=== PATIENT | female | born 1970 | race Caucasian/White ===

== ENCOUNTER 2019-08-09 07:57 | Day surgery (SDC) | payer OTHER ==
[2019-08-05 16:15] LABS: EOSINOPHILS # (AUTO) 0.2 X10'3 (0-0.9); LYMPHOCYTES # (AUTO) 2.6 X10'3 (1.1-4.8); MONOCYTES # (AUTO) 0.5 X10'3 (0-0.9); PRE OP PLATELET COUNT 215 X10'3 (140-440)
[2019-08-05 16:18] LABS: BASOPHILS % (AUTO) 0.7 % (0-1); EOSINOPHILS % (AUTO) 3.3 % (0-6); LYMPHOCYTES % (AUTO) 39.3 % (21-51); MEAN CORPUSCULAR HEMOGLOBIN 31.1 PG (27.0-31.0); MEAN CORPUSCULAR HGB CONC 34.3 g/dL (33.0-36.5); MEAN CORPUSCULAR VOLUME 90.7 FL (78-98); MEAN PLATELET VOLUME 9.1 FL (7.4-10.4); MONOCYTES % (AUTO) 6.9 % (2-12); NEUTROPHILS # (AUTO) 3.3 X10'3 (1.8-7.7); NEUTROPHILS % (AUTO) 49.8 % (42-75); PRE OP HEMATOCRIT 41.6 % (35.0-45.0); PRE OP HEMOGLOBIN 14.3 g/dL (12.0-16.0); RED BLOOD COUNT 4.59 X10'6 (4.20-5.60); RED CELL DISTRIBUTION WIDTH 13.5 % (11.5-14.5)
[2019-08-05 16:27] LABS: ALBUMIN 3.8 G/DL (3.4-5.0); ALBUMIN/GLOBULIN RATIO 1.2 (1.1-1.5); ALKALINE PHOSPHATASE 67 IU/L (46-116); BLOOD UREA NITROGEN 17 MG/DL (7-18); BUN/CREATININE RATIO 19.8 (6.6-38.0); CALCIUM 8.9 MG/DL (8.5-10.1); CHLORIDE 109 MMOL/L (99-107); CREATININE 0.86 MG/DL (0.40-0.90); PRE OP ALT 22 U/L (30-65); PRE OP ANION GAP 4 (8-16); PRE OP AST 17 U/L (10-37); PRE OP BILIRUB, TOTAL 0.4 MG/DL (0.0-1.0); PRE OP GLUCOSE 88 MG/DL (70-104); PRE OP POTASSIUM 4.3 MMOL/L (3.4-5.1); PRE OP SODIUM 144 MMOL/L (135-145); TOTAL CARBON DIOXIDE 30.7 MMOL/L (24-32); eGFR 70 ML/MIN
[2019-08-09] VITALS (7 sets, daily range): BP systolic 111–138; BP diastolic 64–82
[~2019-08-09] VITALS: Ht 162.6 cm; Wt 90.7 kg
[~2019-08-09 07:57] MED LIST: BUPIVAcaine/PF 2.5mg/ml (0.25%) 10ml vial ONE; LIDOcaine 0.5% (5mg/ml) 50ml vial ONE; PREG75CA75 PO; cefazolin/dext.iso 2gm/50ml 50 ML IV ONE; famotidine 20mg tablet PO ONE; ringers solution, lacted 1,000 ML IV SCH
[2019-08-09] MEDS ORDERED: LIDOcaine 0.5% (5mg/ml) 50ml vial ONE (09:30)
[2019-08-09] MEDS ORDERED: midazolam 2 mg/2 ml injection ONE (09:34)
[2019-08-09] MEDS ORDERED: fentaNYL/PF 50MCG/1 ML 2ML syringe ONE (09:34)
--- NOTE | 2019-08-09 10:35 | NUR ---
Received from OR via BED, accompanied by Anesthesiologist DR STEPHENS and report given by Anesthesiolgist. PATIENT A&OX4, DENIES PAIN, V/S WNL, NEUROVASCULAR CHECKS INTACT, 20G PIV LUE, SCD ON, DRESSING TO RIGHT WRIST CDI ELEVATED WITH ICEBAG APPLIED.
[2019-08-09] MEDS ORDERED: ringers solution, lacted 1,000 ML IV SCH (10:57)
[2019-08-09] MEDS ORDERED: morphine 2 MG/ML inj. syringe IV PRN (11:00)
[2019-08-09] MEDS ORDERED: meperidine/PF 25mg/ml syringe IV PRN ×2 (11:00)
[2019-08-09] MEDS ORDERED: proCHLORperazine 10 MG/2 ml inj IV PRN (11:00)
[2019-08-09] MEDS ORDERED: ondansetron/PF 4mg/2ml inj IV PRN (11:00)
[2019-08-09] MEDS ORDERED: morphine 4 MG/ML inj SYRINge IV PRN (11:00)
[2019-08-09] MEDS: meperidine/PF 25mg/ml syringe IV PRN ×2 (11:03→11:15)
[2019-08-09] MEDS ORDERED: HYDROcodone/acetaminophen 5mg/325mg tablet PO ONE (11:15)
--- NOTE | 2019-08-09 11:35 | NUR ---
PATIENT A&OX4, states pain tolerable, V/S WNL, NEUROVASCULAR CHECKS INTACT, 20G PIV D/C, SCD OFF, DRESSING TO RIGHT WRIST CDI ELEVATED WITH ICEBAG APPLIED. I HAVE REVIEWED D/C INSTRUCTIONS WITH PATIENT AND FAMILY AND THEY HAVE VERBALIZED UNDERSTANDING. PATIENT D/C HOME WITH ALL BELONGINGS AND FAMILY GAVE TRANSPORT HOME. PAIN MEDS ALREADY RECEIVED BY MD OFFICE.
== END 2019-08-09 11:35 | disposition home or self-care (01) ==
LOC: PAS 07:57
PROVIDERS: ATTEND Orthopaedic Surgery Hand Surgery
DX: G56.01 Carpal tunnel syndrome, right upper limb (principal); M19.90 Unspecified osteoarthritis, unspecified site; G62.9 Polyneuropathy, unspecified; E66.9 Obesity, unspecified; Z68.34 Body mass index [BMI] 34.0-34.9, adult; Z98.890 Other specified postprocedural states; Z98.84 Bariatric surgery status; Z90.710 Acquired absence of both cervix and uterus; Z72.89 Other problems related to lifestyle; Z11.59 Encounter for screening for other viral diseases
CPT/HCPCS: 36415; 64721; 80053; 82948; 85025; J2001; J2175; J2250; J3010; J3490; U0003; A4215; J7120

== ENCOUNTER 2019-09-27 07:40 | Day surgery (SDC) | payer OTHER ==
[2019-09-23 12:23] LABS: BASOPHILS # (AUTO) 0.1 X10'3 (0-0.2); BASOPHILS % (AUTO) 1.2 % (0-1); EOSINOPHILS # (AUTO) 0.2 X10'3 (0-0.9); EOSINOPHILS % (AUTO) 2.9 % (0-6); LYMPHOCYTES # (AUTO) 2.4 X10'3 (1.1-4.8); LYMPHOCYTES % (AUTO) 38.6 % (21-51); MEAN CORPUSCULAR HEMOGLOBIN 30.6 PG (27.0-31.0); MEAN CORPUSCULAR HGB CONC 33.6 g/dL (33.0-36.5); MEAN CORPUSCULAR VOLUME 91.2 FL (78-98); MEAN PLATELET VOLUME 9.2 FL (7.4-10.4); MONOCYTES # (AUTO) 0.4 X10'3 (0-0.9); MONOCYTES % (AUTO) 7.1 % (2-12); NEUTROPHILS # (AUTO) 3.1 X10'3 (1.8-7.7); NEUTROPHILS % (AUTO) 50.2 % (42-75); PRE OP HEMATOCRIT 41.8 % (35.0-45.0); PRE OP PLATELET COUNT 219 X10'3 (140-440); RED BLOOD COUNT 4.59 X10'6 (4.20-5.60); RED CELL DISTRIBUTION WIDTH 13.4 % (11.5-14.5)
[2019-09-23 12:34] LABS: ALBUMIN 3.8 G/DL (3.4-5.0); ALBUMIN/GLOBULIN RATIO 1.2 (1.1-1.5); ALKALINE PHOSPHATASE 61 IU/L (46-116); BLOOD UREA NITROGEN 15 MG/DL (7-18); CALCIUM 9.1 MG/DL (8.5-10.1); CHLORIDE 112 MMOL/L (99-107); CREATININE 0.79 MG/DL (0.40-0.90); PRE OP ALT 23 U/L (30-65); PRE OP ANION GAP 7 (8-16); PRE OP AST 19 U/L (10-37); PRE OP BILIRUB, TOTAL 0.5 MG/DL (0.0-1.0); PRE OP GLUCOSE 84 MG/DL (70-104); PRE OP POTASSIUM 3.9 MMOL/L (3.4-5.1); PRE OP SODIUM 148 MMOL/L (135-145); TOTAL CARBON DIOXIDE 29.5 MMOL/L (24-32); TOTAL PROTEIN 7.1 G/DL (6.4-8.2); eGFR 77 ML/MIN
[~2019-09-27] VITALS: Ht 162.6 cm; Wt 90.0 kg
[~2019-09-27 07:40] MED LIST changes: -BUPIVAcaine/PF 2.5mg/ml (0.25%) 10ml vial ONE; -LIDOcaine 0.5% (5mg/ml) 50ml vial ONE; +LIDOcaine 1% 30ml preserv. free vial ONE; +ceFAZolin 2gm in dextrose, iso 50 ML IV ONE; -cefazolin/dext.iso 2gm/50ml 50 ML IV ONE
[2019-09-27] MEDS ORDERED: ringers solution, lacted 1,000 ML IV SCH (07:47)
[2019-09-27] MEDS ORDERED: morphine 4 MG/ML inj SYRINge IV PRN (07:50)
[2019-09-27] MEDS ORDERED: meperidine/PF 25mg/ml syringe IV PRN ×3 (07:50)
[2019-09-27] MEDS ORDERED: proCHLORperazine 10 MG/2 ml inj IV PRN (07:50)
[2019-09-27] MEDS ORDERED: ondansetron/PF 4mg/2ml inj IV PRN (07:50)
[2019-09-27] MEDS ORDERED: morphine 2 MG/ML inj. syringe IV PRN (07:50)
[2019-09-27 07:55] VITALS: BP 108/64
[2019-09-27] MEDS ORDERED: BUPIVAcaine/PF 2.5mg/ml (0.25%) 10ml vial ONE (09:51)
[2019-09-27] MEDS ORDERED: fentaNYL/PF 50MCG/1 ML 2ML syringe ONE (10:11)
[2019-09-27] MEDS ORDERED: midazolam 2 mg/2 ml injection ONE (10:11)
[2019-09-27] MEDS ORDERED: BUPIVAcaine/PF 2.5mg/ml (0.25%) 10ml vial IJ ONE (10:24)
[2019-09-27] MEDS ORDERED: ketorolac trometh. 30mg/ml inj. ONE (10:42)
[2019-09-27 10:48] VITALS: BP 103/67
--- NOTE | 2019-09-27 10:48 | NUR ---
Received from OR via , accompanied by Anesthesiologist DR EATON and report given by Anesthesiolgist. PT RESPONDS TO VOICE, SKIN WARM AND PINK, MOVING EXT X 4, PIV RIGHT AC PATENT WITH LR 100ML/HR, NO C/O PAIN. ICE TO LEFT WRIST.
[2019-09-27 10:58] VITALS: BP 104/70
[2019-09-27 11:08] VITALS: BP 112/92
[2019-09-27 11:18] VITALS: BP 125/77
--- NOTE | 2019-09-27 11:18 | NUR ---
PT MEETS DISCHARGE CRITERIA, IV REMOVED, VERBALIZES UNDERSTANDING OF WRITTEN DISCHARGE INSTRUCTIONS. NO C/O PAIN. LEFT UE WARM TO TOUCH AND ABLE TO WIGGLE FINGERS, FULL SENSATION. DISCHARGED TO PRIVATE VEHICLE VIA W/C. DISCHARGE INSTRUCTIONS AND ICE SENT HOME WITH PT. ALL OTHER PERSONAL BELONGINGS ( CELL, READERS, AND BRA IN BAG WITH DISCHARGE INSTRUCTIONS)
== END 2019-09-27 11:18 | disposition home or self-care (01) ==
LOC: PAS 07:40
PROVIDERS: ATTEND Orthopaedic Surgery Hand Surgery
DX: G56.02 Carpal tunnel syndrome, left upper limb (principal); E66.9 Obesity, unspecified; Z68.33 Body mass index [BMI] 33.0-33.9, adult; M17.0 Bilateral primary osteoarthritis of knee; Z98.890 Other specified postprocedural states; Z98.84 Bariatric surgery status; Z90.710 Acquired absence of both cervix and uterus; Z90.49 Acquired absence of other specified parts of digestive tract; Z79.899 Other long term (current) drug therapy; Z11.59 Encounter for screening for other viral diseases; Z72.89 Other problems related to lifestyle
CPT/HCPCS: 36415; 64721; 80053; 82948; 85025; J1885; J2001; J2250; J3010; J3490; U0003; A4215; J7120